=== PATIENT | female | born 1975 | race Caucasian/White ===

== ENCOUNTER 2018-04-25 10:57 | Observation (INO) ==
--- NOTE | 2018-04-25 11:20 | Emergency Department Note ---
Disposition Clinical Impression: Chest pain Qualifiers: Chest pain type: unspecified Qualified Code(s): R07.9 - Chest pain, unspecified CHF (congestive heart failure) Qualifiers: Heart failure type: unspecified Heart failure chronicity: unspecified Qualified Code(s): I50.9 - Heart failure, unspecified Disposition: Admitted As Inpatient Condition: Good General Adult HPI - General Chief complaint: ED Chest Pain Stated complaint: chest pain Time Seen by Provider: 04/25/18 11:05 Source: patient Mode of arrival: ambulatory Limitations: no limitations Nursing Notes Reviewed: Yes Vital Signs Reviewed: Yes - History of Present Illness HPI Narrative: Patient's a 43-year-old female with history of asthma who presents the emergency department with complaints of chest pain, shortness of breath and bilateral eye swelling. She states that the pain began suddenly this morning in the middle of her chest with some radiation into her left arm. She states it is worsened with movement and walking. She otherwise has been having bilateral swelling in her eyes for the past 2 days without known allergy exposure. She states this feels similar to previous episodes of asthma. Otherwise denies any fever, chills, nausea, vomiting, diarrhea, abdominal pain, dysuria, hematuria. Pain Scale: 8 - Related Data Home Medications Medication Instructions Recorded Confirmed Gabapentin [Neurontin] 600 mg PO TID 04/25/18 Naproxen 500 mg PO BID PRN 04/25/18 OXcarbazepine [Oxcarbazepine] 600 mg PO BID 04/25/18 Prazosin [Minipress] 1 mg PO 04/25/18 Trazodone HCl 150 mg PO HS PRN 04/25/18 04/25/18 clonazePAM [Clonazepam] 1 mg PO BID PRN 04/25/18 04/25/18 risperiDONE [Risperidone] 1 mg PO 04/25/18 risperiDONE [Risperidone] 4 mg PO 04/25/18 Previous Rx's Medication Instructions Recorded Clotrimazole 1% CRM [Lotrimin 1%] 1 appl TP BID PRN #30 tube 12/25/17 Furosemide [Lasix] 20 mg PO DAILY #5 tablet 12/25/17 Potassium Chloride 10 meq PO DAILY #5 tab.er.prt 12/25/17 Albuterol Sulfate [Albuterol 1 puff IH Q4HR PRN #1 hfa.aer.ad 02/06/18 Inhaler] Guaifenesin [Mucinex] 1,200 mg PO BID #20 tab.er.12h 02/06/18 Allergies Allergy/AdvReac Type Severity Reaction Status Date / Time dicyclomine Allergy Anaphylaxis Verified 04/25/18 11:02 diphenhydramine Allergy Anaphylaxis Verified 04/25/18 11:02 [From Benadryl] doxycycline Allergy See Verified 04/25/18 11:02 Comments Influenza Virus Vaccines Allergy See Verified 04/25/18 11:02 Comments Penicillins Allergy Anaphylaxis Verified 04/25/18 11:02 FLU SHOT Allergy See Uncoded 01/08/16 16:32 Comments histamines Allergy See Uncoded 01/08/16 17:24 Comments steroids Allergy Anaphylaxis Uncoded 12/25/17 10:28 Constitutional: Denies: fever, chills, weakness, weight change Eyes: Denies: eye pain, eye discharge, vision change Cardiovascular: Reports: chest pain, dyspnea on exertion. Denies: palpitations, orthopnea, edema Respiratory: Reports: cough, dyspnea. Denies: wheezes, hemoptysis, stridor Past Medical History - Past Medical History Medical history: Reports: arthritis, asthma Surgical history: Reports: non-contributory Psychiatric history: Reports: no psych history, previous psychiatric hospitalization, anxiety, bipolar, depression, prior suicide attempt TRANSMISSION TESTER history: Reports: no TRANSMISSION TESTER history, bilateral tubal ligation - Social History Smoking Status: Current every day smoker Smokeless Tobacco Status: No Alcohol use: Reports: none Drug use: Reports: none, marijuana Physical Exam - General Limitations: no limitations General appearance: alert, in no apparent distress, obese - Head Head exam: atraumatic, normocephalic - Eye Eye exam: Present: PERRL, periorbital swelling (bilaterally). Absent: conjunctival injection, nystagmus - ENT ENT exam: normal exam, normal oropharynx, mucous membranes moist, mucous membranes dry - Neck Neck exam: Present: normal inspection, full ROM, trachea midline - Chest Chest inspection: Present: normal inspection, tenderness (central and left lateral) - Respiratory Respiratory exam: Present: wheezes (mild inspiratory and expiratory right lower lobe). Absent: respiratory distress, stridor, accessory muscle use - Cardiovascular Cardiovascular exam: Present: regular rate, normal rhythm, normal heart sounds, +S1, +S2 - Abdominal Exam Abdominal exam: Present: soft, Non-Tender, normal bowel sounds. Absent: distention, guarding, rebound - Extremities Exam Extremities exam: Present: normal capillary refill, pedal edema (2+ bilaterally to knee) - Back Exam Back exam: Present: normal inspection - Neurological Exam Neurological exam: Present: alert, oriented X3 - Psychiatric Psychiatric exam: Present: normal affect, normal mood - Skin Skin exam: Present: warm, dry, intact Course Vital Signs Temperature 97.6 F 04/25/18 11:01 Pulse Rate 94 04/25/18 11:01 Respiratory Rate 20 04/25/18 11:01 Blood Pressure 164/106 04/25/18 11:01 O2 Sat by Pulse Oximetry 96 04/25/18 11:01 Temperature 97.6 F 04/25/18 11:01 Pulse Rate 76 04/25/18 14:44 Respiratory Rate 22 04/25/18 14:44 Blood Pressure 144/94 04/25/18 14:44 O2 Sat by Pulse Oximetry 94 04/25/18 14:44 Oxygen Delivery Oxygen Delivery Room Air Medical Decision Making - [facility] Narrative Medical decision making narrative: Patient with asthma history presenting with symptoms of chest pain, periorbital swelling, and bilateral leg swelling. Does have history of asthma and states this feels somewhat similar to her previous episodes but does admit onset of chest pain. Has been worked up in the past but is awaiting an echo to evaluate for CHF. Does take Lasix 40 mg at home. Given her periorbital swelling concern for allergic reaction. Patient feels slight improvement after DuoNeb but her wheezing persists. Chest x-ray does not show acute effusions. Troponin negative. EKG unremarkable for acute ST elevation. BNP elevated and above her baseline. At this point the patient will require admission as she likely has a component of CHF which has gone undiagnosed. 40 of Lasix given in the emergency department. Discussed the patient's case with hospitalist, Dr. Pretty who has accepted the patient. Patient agrees with and understands course of treatment plan including plan for admission. All questions answered. - Medical Records Medical records reviewed: Yes I reviewed the patient's medical records. - Lab Data Lab results reviewed: Yes I reviewed the patient's lab results. Result diagrams: 04/25/18 11:55 04/25/18 11:55 Lab Results 04/25/18 04/25/18 04/25/18 Range/Units 11:55 11:55 11:55 WBC 7.3 (4.3-11.1) K/mcL RBC 4.02 (3.82-4.97) M/mcL Hgb 12.5 (11.5-15.4) g/dL Hct 37.4 (35.3-44.9) % MCV 93.0 (83.0-100.0) fL MCH 31.1 (28.0-33.3) pg MCHC 33.4 (31.6-35.5) g/dL RDW 14.5 (11.5-14.5) % Plt Count 209 (140-400) K/mcL MPV 9.9 (9.4-12.4) fL Immature Gran % 0.1 (0-4) % Seg Neutrophils % 74.0 % Lymphocytes % 15.1 % Monocytes % 6.0 % Eosinophils % 4.4 % Basophils % 0.4 % Neutrophils # 5.4 (1.6-8.9) K/mcL Lymphocytes # 1.1 (0.6-4.6) K/mcL Monocytes # 0.4 (0.0-1.3) K/mcL Eosinophils # 0.3 (0.0-0.6) K/mcL Basophils # 0.0 (0.0-0.2) K/mcL Sodium 135 L (136-145) mEq/L Potassium 3.8 (3.5-5.1) mEq/L Chloride 103 (98-107) mEq/L Carbon Dioxide 24 (23-29) mEq/L BUN 6 (6-20) mg/dL Creatinine 0.69 (0.60-1.20) mg/dL Est GFR ( Amer) > 60 (> 60) Est GFR (Non-Af Amer) > 60 (> 60) BUN/Creatinine Ratio 9 (6-26) Glucose 101 (70-105) mg/dL Calculated Osmolality 278 L (280-300) Calcium 8.4 L (8.6-10.3) mg/dL Troponin I < 0.03 (< 0.04) ng/mL B-Natriuretic Peptide 133 H (Less than 100) pg/mL TSH 1.586 (0.340-5.600) mcIU/mL Urine Color (Yellow) Urine Clarity (Clear) Urine pH (5.0-8.0) pH Units Ur Specific [place] (1.010-1.025) Urine Protein (Neg-Trace) mg/dL Urine Glucose (UA) (Normal) mg/dL Urine Ketones (Negative) mg/dL Urine Blood (Negative) Urine Nitrite (Negative) Urine Bilirubin (Negative) Urine Urobilinogen (Normal) mg/dL Ur Leukocyte Esterase (Negative) Urine Microscopic RBC (0-3) per hpf Urine Microscopic WBC (0-3) per hpf Ur Squamous Epith Cells (None-Few) per lpf Urine Bacteria (None-Few) per hpf Hyaline Casts (None-Few) per lpf Ur Culture Indicated? (NO) Urine Test (Negative) 04/25/18 04/25/18 Range/Units 12:03 12:03 WBC (4.3-11.1) K/mcL RBC (3.82-4.97) M/mcL Hgb (11.5-15.4) g/dL Hct (35.3-44.9) % MCV (83.0-100.0) fL MCH (28.0-33.3) pg MCHC (31.6-35.5) g/dL RDW (11.5-14.5) % Plt Count (140-400) K/mcL MPV (9.4-12.4) fL Immature Gran % (0-4) % Seg Neutrophils % % Lymphocytes % % Monocytes % % Eosinophils % % Basophils % % Neutrophils # (1.6-8.9) K/mcL Lymphocytes # (0.6-4.6) K/mcL Monocytes # (0.0-1.3) K/mcL Eosinophils # (0.0-0.6) K/mcL Basophils # (0.0-0.2) K/mcL Sodium (136-145) mEq/L Potassium (3.5-5.1) mEq/L Chloride (98-107) mEq/L Carbon Dioxide (23-29) mEq/L BUN (6-20) mg/dL Creatinine (0.60-1.20) mg/dL Est GFR ( Amer) (> 60) Est GFR (Non-Af Amer) (> 60) BUN/Creatinine Ratio (6-26) Glucose (70-105) mg/dL Calculated Osmolality (280-300) Calcium (8.6-10.3) mg/dL Troponin I (< 0.04) ng/mL B-Natriuretic Peptide (Less than 100) pg/mL TSH (0.340-5.600) mcIU/mL Urine Color Yellow (Yellow) Urine Clarity Cloudy A (Clear) Urine pH 6.0 (5.0-8.0) pH Units Ur Specific [place] 1.008 L (1.010-1.025) Urine Protein Negative (Neg-Trace) mg/dL Urine Glucose (UA) Normal (Normal) mg/dL Urine Ketones Negative (Negative) mg/dL Urine Blood Negative (Negative) Urine Nitrite Negative (Negative) Urine Bilirubin Negative (Negative) Urine Urobilinogen Normal (Normal) mg/dL Ur Leukocyte Esterase Negative (Negative) Urine Microscopic RBC 0-3 (0-3) per hpf Urine Microscopic WBC 3-5 H (0-3) per hpf Ur Squamous Epith Cells Many H (None-Few) per lpf Urine Bacteria Few (None-Few) per hpf Hyaline Casts None Seen (None-Few) per lpf Ur Culture Indicated? NO (NO) Urine Test Negative (Negative) - Radiology Data Radiology results reviewed: Yes I reviewed the patient's radiology results. Chest X-Ray 04/25/18 11:24 IMPRESSION: Mild hazy bilateral perihilar interstitial prominence which may relate to vascular congestion or bronchitis. No focal airspace disease. D/ / Ravi Vidal MD / Ravi Vidal MD Interpreting Provider: Ravi Vidal MD - EKG Data EKG #1 EKG attestation: Yes I reviewed and interpreted this EKG. EKG results narrative: Normal sinus rhythm rate of 80. [place] 167, QRS 91, QT 406, QTC 469. Normal axis. No evidence of acute ST elevations. T wave inversions in aVR and V1 persists. Unchanged when compared to prior from today, 04/25/18 EKG shows normal: sinus rhythm Rate: normal Rhythm: NSR [place]/QRS: normal T wave inversions noted in: aVR, v1 When compared to previous EKG there are: no significant changes Interpretation: unchanged when compared to prior tracing (date) (02/06/18) EKG #2 EKG attestation: Yes I reviewed and interpreted this EKG. EKG results narrative: Normal sinus rhythm rate of 80. [place] 167, QRS 91, QT 406, QTC 469. Normal axis. No evidence of acute ST elevations. T wave inversions in aVR and V1 persists. Unchanged when compared to prior from today, 04/25/18 Attestation Statement - Attestation Attestation: I examined this patient and my medical decision-making was reviewed with the Resident Physician, Dr. Rojas. I agree with the documented findings, disposition and treatment plan as described except to the extent set forth below. Patient is a 43-year-old obese white female with questionable history of CHF who presents to emergency permit today with complaints of shortness of breath and acute onset of chest pain that she experienced this morning soon after wakening. Pain was in her left chest radiating into the left shoulder she was feeling nauseous with this and short of breath. Patient denies any prior cardiac history states that her primary care physician and started on Lasix for genera lized edema as well as facial edema and she is awaiting outpatient echo for further evaluation. Patient here is complaining of some 6 out of 10 left-sided chest discomfort that is persistent since this morning. Patient also has some expiratory wheezing that is auscultated in the bases bilaterally, and she also has some very orbital edema. Patient denies any skin changes rash or hives, no itching, no nausea vomiting preceding the evaluation today, no perioral swelling no tongue swelling no sore throat, no difficulty swallowing or managing secretions. I asked the patient about allergic history and she said she has had some allergy testing done in the past but as far she is aware that she is had no abnormalities that if shown up although she does complain of numerous drug allergies that cause anaphylaxis. Specifically she states allergies to Benadryl and steroids and says that both of these agents caused anaphylaxis in the past. Due to this we held off on administering anything for her periorbital edema and did write for breathing treatments the wheezing. Patient was not having any respiratory distress. I agree with patient's physical exam findings as documented. Vital signs are stable. Patient received a DuoNeb treatment aspirin was held as she reports severe allergic reaction. Patient did get significant improvement in her chest discomfort with DuoNeb. Patient had full lab evaluation including troponin and BNP as well as chest x- ray. Patient with a mild elevation in her BNP and some evidence of pulmonary vascular congestion on chest x-ray but no consolidation. Patient will be admitted for further evaluation of her chest pain unclear as I think this is multifactorial at this time with an asthma exacerbation as well as some allergic component causing her periorbital edema. Her multiple allergies make it difficult to attempt to address these issues here. Patient will be admitted to the hospitalist service for further evaluation and management she remains hemodynamically stable and in no sign of respiratory distress at this time.
[2018-04-25] MEDS ORDERED: Ipratropium/Albuterol Neb 3 ML IH ONE (11:27)
[2018-04-25 12:14] LABS: Basophils % 0.4 %; Eosinophils # 0.3 K/mcL (0.0-0.6); Eosinophils % 4.4 %; Hematocrit 37.4 % (35.3-44.9); Hemoglobin 12.5 g/dL (11.5-15.4); Immature Granulocytes % 0.1 % (0-4); Lymphocytes # 1.1 K/mcL (0.6-4.6); Lymphocytes % 15.1 %; Mean Corpuscular HGB Conc 33.4 g/dL (31.6-35.5); Mean Corpuscular Hemoglobin 31.1 pg (28.0-33.3); Mean Platelet Volume 9.9 fL (9.4-12.4); Monocytes # 0.4 K/mcL (0.0-1.3); Neutrophils # 5.4 K/mcL (1.6-8.9); Platelet Count 209 K/mcL (140-400); Red Blood Count 4.02 M/mcL (3.82-4.97); Red Cell Distribution Width 14.5 % (11.5-14.5)
[2018-04-25 12:37] LABS: Troponin I < 0.03 ng/mL (< 0.04)
[2018-04-25 12:39] LABS: BUN/Creatinine Ratio 9 (6-26); Blood Urea Nitrogen 6 mg/dL (6-20); Calcium 8.4 mg/dL (8.6-10.3); Carbon Dioxide 24 mEq/L (23-29); Chloride 103 mEq/L (98-107); Glucose 101 mg/dL (70-105); Osmolality,Calculated 278 (280-300); Potassium 3.8 mEq/L (3.5-5.1); Sodium 135 mEq/L (136-145); eGFR For Non-African Americans > 60 (> 60)
[2018-04-25 12:43] LABS: Bilirubin,Urine Negative (Negative); Blood,Urine Negative (Negative); Clarity,Urine Cloudy (Clear); Color,Urine Yellow (Yellow); Glucose,Urine (UA) Normal (Normal); Ketones,Urine Negative (Negative); Leukocyte Esterase,Urine Negative (Negative); Nitrite,Urine Negative (Negative); Protein,Urine Negative (Neg-Trace); Specific Gravity,Urine 1.008 (1.010-1.025); Urobilinogen,Urine Normal (Normal)
[2018-04-25 12:44] LABS: Bacteria,Urine Few per hpf (None-Few); Hyaline Casts,Urine None Seen per lpf (None-Few); RBC,Urine 0-3 per hpf (0-3); Squamous Epithelial Cell,Urine Many per lpf (None-Few)
[2018-04-25 12:50] LABS: Thyroid Stimulating Hormone 1.586 mcIU/mL (0.340-5.600)
[2018-04-25] MEDS ORDERED: Ibuprofen 600 MG TABLET PO STA (13:07)
[2018-04-25] MEDS ORDERED: Furosemide 40 MG/4 ML VIAL IVP ONE (13:35)
[2018-04-25] MEDS ORDERED: *HR* HYDROcodone/Acet 5/325 mg TABLET PO PRN (15:34)
[2018-04-25] MEDS ORDERED: Ondansetron 4 MG/2 ML VIAL IVP PRN (15:34)
[2018-04-25] MEDS ORDERED: Naloxone 0.4 MG/ML INJ IVP PRN (15:34)
[2018-04-25] MEDS ORDERED: Nitroglycerin 0.4 MG TAB.SUBL SL PRN (15:38)
[2018-04-25] MEDS ORDERED: Ipratropium/Albuterol Neb 3 ML IH PRN (15:38)
--- NOTE | 2018-04-25 15:42 | Internal Med History&Physical ---
Date of Encounter: 04/25/18 Time of Encounter: 15:39 Internal Medicine - H&P: HPI Chief complaint: Chest pain Admitted From: Emergency Dept Plans for Post Hospital Care: Home History of present illness: Ms. Taras Brito is a 43 year old female with a known past medical history of asthma, chronic tobacco dependence, anxiety, bipolar and questionable congestive heart failure who is on Lasix 60mg for bilateral lower extremity edema and facial swelling presented emergency room complaining about since this morning patient has been having continuous sharp chest pain located sub sternal region radiating to her left shoulder. Her chest pain 6 out of 10 in severity not associated with any shortness of breath/dyspnea on exertion. Patient did mention this morning she noticed some facial swelling as well as bilateral lower extremity edema which improved now of taking Lasix at home as well as in the ER. Patient complains of chest pain or shoulder pain is like a soreness. She does have reproducible chest wall tenderness. Past Med Surg Social Fam HX - Past Medical History Medical history: arthritis, asthma Additional medical history: Cervical Cancer Psychiatric history: no psych history, previous psychiatric hospitalization, anxiety, bipolar, depression, prior suicide attempt - Past Surgical History Surgical History: non-contributory Additional surgical history: CERVICS REMOVED - Social History Smoking Status: Current every day smoker Smokeless Tobacco Status: No Alcohol use: none Drug use: none, marijuana Internal Medicine - H&P: Meds Clotrimazole 1% CRM [Lotrimin 1%] 1 appl TP BID PRN #30 tube 12/25/17 [Rx] Furosemide [Lasix] 20 mg PO DAILY #5 tablet 12/25/17 [Rx] Potassium Chloride 10 meq PO DAILY #5 tab.er.prt 12/25/17 [Rx] Albuterol Sulfate [Albuterol Inhaler] 1 puff IH Q4HR PRN #1 hfa.aer.ad 02/06/18 [Rx] Guaifenesin [Mucinex] 1,200 mg PO BID #20 tab.er.12h 02/06/18 [Rx] Gabapentin [Neurontin] 600 mg PO TID 04/25/18 [History] Naproxen 500 mg PO BID PRN 04/25/18 [History] OXcarbazepine [Oxcarbazepine] 600 mg PO BID 04/25/18 [History] Prazosin [Minipress] 1 mg PO 04/25/18 [History] Trazodone HCl 150 mg PO HS PRN 04/25/18 [History] clonazePAM [Clonazepam] 1 mg PO BID PRN 04/25/18 [History] risperiDONE [Risperidone] 1 mg PO 04/25/18 [History] risperiDONE [Risperidone] 4 mg PO 04/25/18 [History] Allergy/AdvReac Type Severity Reaction Status Date / Time dicyclomine Allergy Anaphylaxis Verified 04/25/18 11:02 diphenhydramine Allergy Anaphylaxis Verified 04/25/18 11:02 [From Benadryl] doxycycline Allergy See Verified 04/25/18 11:02 Comments Influenza Virus Vaccines Allergy See Verified 04/25/18 11:02 Comments Penicillins Allergy Anaphylaxis Verified 04/25/18 11:02 FLU SHOT Allergy See Uncoded 01/08/16 16:32 Comments histamines Allergy See Uncoded 01/08/16 17:24 Comments steroids Allergy Anaphylaxis Uncoded 12/25/17 10:28 All Systems PM: A 10-system review of systems was performed and is negative for pertinent findings except as documented above in the HPI. Review of systems: All the systems are reviewed everything is benign except the systems and symptoms I mentioned in the history of present illness - Constitutional Vitals: Temp Pulse Resp BP Pulse Ox 97.8 F 81 20 138/94 91 04/25/18 15:35 04/25/18 15:35 04/25/18 15:35 04/25/18 15:35 04/25/18 15:35 General appearance: Present: A&O X 3, no acute distress, answers questions appropriately Exam: See below - Head Head exam: Present: atraumatic, normal inspection - Neck Neck exam general surgery: Present: supple - Respiratory Respiratory exam: Present: decreased breath sounds. Absent: rales, respiratory distress, rhonchi, wheezes - Cardiovascular Cardiovascular exam: Present: RRR, +S1, +S2. Absent: tachycardia Additional comments: Chest wall tenderness present - GI/Abdominal GI/Abdominal exam: Present: normal bowel sounds, soft. Absent: distended, rebound, rigid, tenderness - Extremities Exam Extremities exam: Present: pedal edema (Trace edema). Absent: calf tenderness, tenderness - Back Exam Back exam: Absent: CVA tenderness (L), CVA tenderness (R) - Neurological Exam Neurological exam: Present: alert, oriented X3 - Psychiatric Psychiatric exam: Present: normal affect, normal mood - Skin Skin exam: Absent: rash Internal Med - H&P Results - Labs CBC & Chem 7: 04/25/18 11:55 04/25/18 11:55 Labs: Short CBC 04/25/18 Range/Units 11:55 WBC 7.3 (4.3-11.1) K/mcL Hgb 12.5 (11.5-15.4) g/dL Hct 37.4 (35.3-44.9) % Plt Count 209 (140-400) K/mcL Neutrophils # 5.4 (1.6-8.9) K/mcL BMP 04/25/18 11:55 Sodium 135 L Potassium 3.8 Chloride 103 Carbon Dioxide 24 BUN 6 Creatinine 0.69 Glucose 101 Calcium 8.4 L Cardiac Enzymes 04/25/18 Range/Units 11:55 Troponin I < 0.03 (< 0.04) ng/mL Urine 04/25/18 Range/Units 12:03 Urine Color Yellow (Yellow) Urine Clarity Cloudy A (Clear) Urine pH 6.0 (5.0-8.0) pH Units Ur Specific [place] 1.008 L (1.010-1.025) Urine Protein Negative (Neg-Trace) mg/dL Urine Glucose (UA) Normal (Normal) mg/dL - Impressions ITS Impressions Chest X-Ray 04/25/18 11:24 IMPRESSION: Mild hazy bilateral perihilar interstitial prominence which may relate to vascular congestion or bronchitis. No focal airspace disease. D/ / Ravi Vidal MD / Ravi Vidal MD Interpreting Provider: Ravi Vidal MD - Assessment and plan (1) Atypical chest pain Current Visit: Yes Status: Acute Assessment and plan: Will admit the pt into Tele for observation Will place pt on cardiac technologist check serial troponin so far negative troponin EKG reviewed- NSR, no acute ischemic changes, ST, T changes noticed will start pt on ASA and Nitro PRN for pain Will check FLP in AM she does have reproducible chest wall tenderness her chest pain seems to more like musculoskeletal however given her congestive heart failure symptoms I would get echo in the morning and monitor her symptoms closely for now will keep her NPO after midnight if in case patient needs any further interventions in the morning (2) Acute exacerbation of CHF (congestive heart failure) Current Visit: Yes Status: Acute Assessment and plan: Apparently patient has been having bilateral lower extremity edema and facial swelling which she has been taking Lasix at home her BNP @ 133 reviewer chest x-ray showed mild vascular congestion she was received Lasix IV in the ER will get echo in the morning monitor symptoms closely she might have mild diastolic congestive heart failure exacerbation Qualifiers: Heart failure type: unspecified Qualified Code(s): I50.9 - Heart failure, unspecified (3) Asthma Current Visit: Yes Status: Chronic Assessment and plan: Not in exacerbation resumed home inhalers Qualifiers: Asthma severity: mild Asthma persistence: intermittent Asthma complication type: uncomplicated Qualified Code(s): J45.20 - Mild intermittent asthma, uncomplicated (4) Tobacco dependence Current Visit: Yes Status: Acute Assessment and plan: Counseled to quit smoking placed on nicotine patch (5) Bipolar 1 disorder Current Visit: Yes Status: Acute Assessment and plan: Will regime all her home medications - Time Spent With Patient Total time spent is greater than 50% in coordination of care (as documented) at patient's floor/unit and/or counseling patient:
[2018-04-25] MEDS: Nicotine 21 MG PATCH.TD24 TD SCH (16:51)
[2018-04-25] MEDS: Acetaminophen 325 MG TABLET PO PRN (20:23)
[2018-04-25] MEDS ORDERED: Perflutren Lipid Microsphere 1.3 ML in 0.9 % Sodium Chloride 8.7 ML IVP ONE (21:45)
[2018-04-26] MEDS: Acetaminophen 325 MG TABLET PO PRN (01:23)
[2018-04-26 05:35] LABS: BUN/Creatinine Ratio 11 (6-26); Blood Urea Nitrogen 8 mg/dL (6-20); Calcium 8.5 mg/dL (8.6-10.3); Carbon Dioxide 27 mEq/L (23-29); Chloride 101 mEq/L (98-107); Chol/HDL Ratio 3.3 (0-4.9); Cholesterol 127 mg/dL (< 200); Glucose 93 mg/dL (70-105); HDL Cholesterol 38 mg/dL (40-59); LDL Cholesterol,Calculated 69 mg/dL (0-99); Osmolality,Calculated 282 (280-300); Potassium 3.7 mEq/L (3.5-5.1); Sodium 137 mEq/L (136-145); Triglycerides 102 mg/dL (< 150); eGFR For Non-African Americans > 60 (> 60)
[2018-04-26] MEDS ORDERED: Aspirin Enteric Coated 81 MG Tablet PO SCH (09:00)
[2018-04-26] MEDS ORDERED: Furosemide 40 MG/4 ML VIAL IVP SCH (09:00)
[2018-04-26] MEDS: Nicotine 21 MG PATCH.TD24 TD SCH (10:56)
--- NOTE | 2018-04-26 11:53 | Discharge Summary ---
- NOTES TO OUTPATIENT PROVIDER Notes to Outpatient Provider: Follow up with PCP in one week. please quit smoking Orders not resulted at time of discharge: Pending orders 04/25/18 11:09 ECG 12 lead ECG [ECG] Stat Date of Encounter: 04/26/18 Time of Encounter: 11:51 - Discharge Diagnosis (1) Atypical chest pain Priority: Primary Status: Acute (2) Acute exacerbation of CHF (congestive heart failure) Priority: Primary Status: Acute Qualifiers: Heart failure type: unspecified Qualified Code(s): I50.9 - Heart failure, unspecified (3) Asthma Priority: Secondary Status: Chronic Qualifiers: Asthma severity: mild Asthma persistence: intermittent Asthma complication type: uncomplicated Qualified Code(s): J45.20 - Mild intermittent asthma, uncomplicated (4) Tobacco dependence Priority: Secondary Status: Acute (5) Bipolar 1 disorder Priority: Secondary Status: Acute Hospital course: Ms. Taras Brito is a 43 year old female with a known past medical history of asthma, chronic tobacco dependence, anxiety, bipolar and questionable congestive heart failure who is on Lasix 60mg for bilateral lower extremity edema and facial swelling presented emergency room complaining about since this morning patient has been having continuous sharp chest pain located sub sternal region radiating to her left shoulder. Her chest pain 6 out of 10 in severity not associated with any shortness of breath/dyspnea on exertion. Patient did mention this morning she noticed some facial swelling as well as bilateral lower extremity edema which improved now of taking Lasix at home as well as in the ER. Patient complains of chest pain or shoulder pain is like a soreness. She does have reproducible chest wall tenderness. Patient was admitted in the hospital and placed her on desk monitor. We checked her serial troponin X3 came back is negative. Her EKG did not show any acute ischemic changes. Her chest pain seems to be atypical and most likely due to costochondritis. Reviewed her echocardiogram showed preserved LVEF with no wall motion abnormalities. She does have mild left ventricular concentric hypertrophy. She was given IV Lasix her symptoms improved today. she is breathing comfortably on room air. Will discharge her home in a stable condition today after ambulating pulse oxy study - Time Spent with Patient Total time spent providing and/or coordinating discharge services: - Discharge Medications Prescriptions: Aspirin Enteric Coated [Aspirin EC] 81 mg PO DAILY #30 tablet. Naproxen 500 mg PO BID PRN #20 tablet PRN Reason: Pain Nicotine Patch [Nicoderm] 21 mg TD Q24H #30 patch.td24 Home Medications: Clotrimazole 1% CRM [Lotrimin 1%] 1 appl TP BID PRN #30 tube 12/25/17 [Rx] Furosemide [Lasix] 20 mg PO DAILY #5 tablet 12/25/17 [Rx] Albuterol Sulfate [Albuterol Inhaler] 1 puff IH Q4HR PRN #1 hfa.aer.ad 02/06/18 [Rx] Guaifenesin [Mucinex] 1,200 mg PO BID #20 tab.er.12h 02/06/18 [Rx] Gabapentin [Neurontin] 600 mg PO TID 04/25/18 [History] OXcarbazepine [Oxcarbazepine] 600 mg PO HS 04/25/18 [History] Prazosin [Minipress] 1 mg PO DAILY 04/25/18 [History] Trazodone HCl 150 mg PO HS PRN 04/25/18 [History] clonazePAM [Clonazepam] 1 mg PO BID PRN 04/25/18 [History] risperiDONE [Risperidone] 1 mg PO DAILY 04/25/18 [History] risperiDONE [Risperidone] 4 mg PO DAILY 04/25/18 [History] Aspirin Enteric Coated [Aspirin EC] 81 mg PO DAILY #30 tablet. 04/26/18 [Rx] Naproxen 500 mg PO BID PRN #20 tablet 04/26/18 [Rx] Nicotine Patch [Nicoderm] 21 mg TD Q24H #30 patch.td24 04/26/18 [Rx] Allergies/Adverse Reactions: Allergy/AdvReac Type Severity Reaction Status Date / Time dicyclomine Allergy Anaphylaxis Verified 04/25/18 11:02 diphenhydramine Allergy Anaphylaxis Verified 04/25/18 11:02 [From Benadryl] doxycycline Allergy See Verified 04/25/18 11:02 Comments Influenza Virus Vaccines Allergy See Verified 04/25/18 11:02 Comments Penicillins Allergy Anaphylaxis Verified 04/25/18 11:02 FLU SHOT Allergy See Uncoded 01/08/16 16:32 Comments histamines Allergy See Uncoded 01/08/16 17:24 Comments steroids Allergy Anaphylaxis Uncoded 12/25/17 10:28 Date of admission: 04/25/18 14:42 Primary care physician: Otf Casey MD Consults: 04/26/18 07:47 Consult to Nurse Navigator [CONS] Routine Comment: CHF - Constitutional Vitals: Temp Pulse Resp BP Pulse Ox 97.9 F 71 18 131/86 90 04/26/18 07:53 04/26/18 07:53 04/26/18 07:53 04/26/18 07:53 04/26/18 07:53 General appearance: Present: A&O X 3, no acute distress, answers questions appropriately Exam: Gen: Alert, awake, Oriented to time,place and person Chest: Diminished breath sounds B/L, No wheezing, No crackles, No rales, reproducible chest wall tenderness Heart: S1S2+ RRR No murmurs Abd: Soft, NT, BS +, No organomegaly Ext: improved edema, pulses are palpable, No calf tenderness Neuro : Benign findings Skin: No rash. - Patient Status Disposition: Home, Self-Care Condition: Good Overall status at discharge: patient is back to baseline - Discharge Instructions Follow Up With: Otf Casey MD [Primary Care Provider] - - Diet and Activity Activity: increase activity as tolerated Diet: low salt diet
[2018-04-26 12:01] VITALS: BP 113/74
--- NOTE | 2018-04-29 09:27 | Electrocardiograph Report ---
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
== END 2018-04-26 14:59 | disposition home or self-care (01) ==
LOC: 3BNU 10:57 → EMEROOARM 10:57 → 3BNU 15:09
PROVIDERS: ADMIT Internal Medicine; ATTEND Internal Medicine

== ENCOUNTER 2019-04-08 21:45 | Inpatient (IN) ==
[2019-04-08] MEDS ORDERED: Ipratropium/Albuterol Neb 3 ML IH ONE (21:59)
[2019-04-08] MEDS ORDERED: methylPREDNISolone 125 MG/2 ML VIAL IVP ONE (21:59)
[2019-04-08 23:10] LABS: Basophils % 0.4 %; Eosinophils # 0.2 K/mcL (0.0-0.6); Eosinophils % 3.3 %; Hematocrit 33.8 % (35.3-44.9); Hemoglobin 11.6 g/dL (11.5-15.4); Immature Granulocytes % 0.4 % (0-4); Lymphocytes # 1.2 K/mcL (0.6-4.6); Lymphocytes % 16.1 %; Mean Corpuscular HGB Conc 34.3 g/dL (31.6-35.5); Mean Corpuscular Hemoglobin 32.3 pg (28.0-33.3); Mean Corpuscular Volume 94.2 fL (83.0-100.0); Mean Platelet Volume 10.2 fL (9.4-12.4); Monocytes # 0.6 K/mcL (0.0-1.3); Monocytes % 7.6 %; Neutrophils # 5.3 K/mcL (1.6-8.9); Platelet Count 173 K/mcL (140-400); Red Blood Count 3.59 M/mcL (3.82-4.97); Red Cell Distribution Width 13.8 % (11.5-14.5); Segmented Neutrophils % 72.2 %; White Blood Count 7.3 K/mcL (4.3-11.1)
[2019-04-08 23:33] LABS: Alanine Aminotransferase 6 Units/L (7-52); Albumin/Globulin Ratio 1.5 (1.1-2.2); Alkaline Phosphatase 52 Units/L (34-104); Aspartate Amino Transferase 10 Units/L (13-39); BUN/Creatinine Ratio 7 (6-26); Bilirubin,Direct 0.1 mg/dL (0.0-0.2); Bilirubin,Indirect 0.4 mg/dL (0.0-1.0); Bilirubin,Total 0.5 mg/dL (0.3-1.0); Blood Urea Nitrogen 5 mg/dL (6-20); Calcium 8.4 mg/dL (8.6-10.3); Carbon Dioxide 30 mEq/L (23-29); Chloride 102 mEq/L (98-107); Globulin 2.7 g/dL (2.4-3.5); Glucose 90 mg/dL (70-105); Lipase 5 Units/L (11-82); Osmolality,Calculated 285 (280-300); Potassium 2.8 mEq/L (3.5-5.1); Sodium 139 mEq/L (136-145); Total Protein 6.7 g/dL (6.4-8.9); Troponin I < 0.03 ng/mL (< 0.04); eGFR For African Americans > 60 (> 60); eGFR For Non-African Americans > 60 (> 60)
[2019-04-08 23:53] LABS: Magnesium 1.8 mg/dL (1.6-2.6)
[2019-04-09] MEDS ORDERED: Isovue-370 500 ML BOTTLE IVP ONE (00:11)
[2019-04-09] MEDS ORDERED: clonazePAM 1 MG TABLET PO ONE (00:26)
[2019-04-09] MEDS ORDERED: Furosemide 40 MG/4 ML VIAL IVP ONE (00:55)
[2019-04-09] MEDS ORDERED: Acetaminophen 325 MG TABLET PO PRN (02:09)
[2019-04-09] MEDS ORDERED: Ipratropium/Albuterol Neb 3 ML IH PRN (02:12)
[2019-04-09] MEDS ORDERED: Potassium Chloride Elixir 20 MEQ/15 ML UDC PO ONE ×2 (06:00→08:26)
[2019-04-09 07:40] LABS: BUN/Creatinine Ratio 7 (6-26); Blood Urea Nitrogen 5 mg/dL (6-20); Calcium 8.5 mg/dL (8.6-10.3); Carbon Dioxide 35 mEq/L (23-29); Chloride 99 mEq/L (98-107); Glucose 88 mg/dL (70-105); Osmolality,Calculated 287 (280-300); Potassium 3.2 mEq/L (3.5-5.1); Sodium 140 mEq/L (136-145); eGFR For African Americans > 60 (> 60); eGFR For Non-African Americans > 60 (> 60)
[2019-04-09] MEDS ORDERED: Furosemide 40 MG/4 ML VIAL IVP SCH (09:00)
[2019-04-09] MEDS: Gabapentin 300 MG CAPSULE PO SCH ×3 (09:38→20:27)
[2019-04-09] MEDS: Loratadine 10 MG TABLET PO SCH (09:38)
[2019-04-09] MEDS: Famotidine 20 MG TABLET PO SCH (09:39)
[2019-04-09] MEDS: BuPROPion SR (12 HR) 150 MG TABLET PO SCH ×2 (09:39→20:27)
[2019-04-09] MEDS: Benzonatate 100 MG CAPSULE PO PRN (09:39)
[2019-04-09] MEDS: Sucralfate 1 GM TABLET PO SCH ×4 (09:39→20:26)
[2019-04-09] MEDS: clonazePAM 1 MG TABLET PO SCH ×2 (09:46→20:27)
[2019-04-09] MEDS: *HR* HYDROcodone/Acet 5/325 mg TABLET PO PRN ×2 (09:48→18:13)
[2019-04-09] MEDS ORDERED: Lidocaine -MPF 2% 2 ML VIAL ONE (12:11)
[2019-04-09] MEDS ORDERED: *HR* Propofol 200 MG/20 ML VIAL IVP ONE ×2 (12:11→12:37)
[2019-04-09 13:26] LABS: Bilirubin,Urine Small (Negative); Blood,Urine Large (Negative); Clarity,Urine Cloudy (Clear); Color,Urine Red (Yellow); Glucose,Urine (UA) Normal (Normal); Ketones,Urine Trace mg/dL (Negative); Leukocyte Esterase,Urine Moderate (Negative); Nitrite,Urine Negative (Negative); Protein,Urine 100 mg/dL (Neg-Trace); Urobilinogen,Urine Normal (Normal)
[2019-04-09] MEDS ORDERED: 0.9 % Sodium Chloride 1,000 ML IVC SCH (14:30)
[2019-04-09] MEDS ORDERED: Piperacillin/Tazobactam 3.375 GM in 0.9 % Sodium Chloride Mini Bag 100 ML IVPB SCH (16:00)
[2019-04-09] MEDS: 0.9 % Sodium Chloride 1,000 ML IVC SCH (17:07)
[2019-04-09] MEDS: *HR* Heparin 5,000 UNIT/ML VIAL SQ SCH (17:17)
[2019-04-09] MEDS: Furosemide 40 MG/4 ML VIAL IVP SCH (17:17)
[2019-04-09] MEDS: levoFLOXacin 750 MG/150 ML 750 MG/150 ML BAG IVPB SCH (17:18)
[2019-04-09] MEDS: traZODone 50 MG TABLET PO SCH (20:26)
[2019-04-09] MEDS: risperiDONE 1 MG TABLET PO SCH (20:27)
[2019-04-10 01:44] LABS: Basophils % 0.4 %; Eosinophils # 0.3 K/mcL (0.0-0.6); Eosinophils % 4.9 %; Hematocrit 34.6 % (35.3-44.9); Hemoglobin 11.9 g/dL (11.5-15.4); Immature Granulocytes % 0.4 % (0-4); Lymphocytes % 18.5 %; Mean Corpuscular HGB Conc 34.4 g/dL (31.6-35.5); Mean Corpuscular Hemoglobin 32.3 pg (28.0-33.3); Monocytes # 0.7 K/mcL (0.0-1.3); Monocytes % 12.5 %; Neutrophils # 3.4 K/mcL (1.6-8.9); Platelet Count 191 K/mcL (140-400); Red Blood Count 3.68 M/mcL (3.82-4.97); Red Cell Distribution Width 14.1 % (11.5-14.5); Segmented Neutrophils % 63.3 %; White Blood Count 5.4 K/mcL (4.3-11.1)
[2019-04-10 01:53] LABS: BUN/Creatinine Ratio 10 (6-26); Blood Urea Nitrogen 7 mg/dL (6-20); Calcium 8.3 mg/dL (8.6-10.3); Carbon Dioxide 30 mEq/L (23-29); Chloride 103 mEq/L (98-107); Glucose 78 mg/dL (70-105); Magnesium 1.8 mg/dL (1.6-2.6); Osmolality,Calculated 289 (280-300); Potassium 3.6 mEq/L (3.5-5.1); Sodium 141 mEq/L (136-145); eGFR For African Americans > 60 (> 60); eGFR For Non-African Americans > 60 (> 60)
[2019-04-10] MEDS: *HR* HYDROcodone/Acet 5/325 mg TABLET PO PRN ×3 (03:16→20:16)
[2019-04-10] MEDS: 0.9 % Sodium Chloride 1,000 ML IVC SCH (03:19)
[2019-04-10] MEDS: *HR* Heparin 5,000 UNIT/ML VIAL SQ SCH ×2 (06:30→17:48)
[2019-04-10] MEDS: Loratadine 10 MG TABLET PO SCH (08:14)
[2019-04-10] MEDS: clonazePAM 1 MG TABLET PO SCH (08:15)
[2019-04-10] MEDS: Sucralfate 1 GM TABLET PO SCH ×4 (08:16→22:21)
[2019-04-10] MEDS: Gabapentin 300 MG CAPSULE PO SCH ×3 (08:16→20:16)
[2019-04-10] MEDS: Famotidine 20 MG TABLET PO SCH (08:16)
[2019-04-10] MEDS: Furosemide 40 MG/4 ML VIAL IVP SCH ×2 (08:16→17:48)
[2019-04-10] MEDS: BuPROPion SR (12 HR) 150 MG TABLET PO SCH ×2 (08:16→20:16)
[2019-04-10] MEDS ORDERED: Lactulose Oral Soln 20 GM/30 ML UDC PO ONE (15:18)
[2019-04-10] MEDS: levoFLOXacin 750 MG/150 ML 750 MG/150 ML BAG IVPB SCH (17:48)
[2019-04-10] MEDS: Benzonatate 100 MG CAPSULE PO PRN (17:49)
[2019-04-10] MEDS: traZODone 50 MG TABLET PO SCH (20:15)
[2019-04-10] MEDS: risperiDONE 1 MG TABLET PO SCH (20:16)
[2019-04-10] MEDS: clonazePAM 1 MG TABLET PO PRN (22:24)
[2019-04-11 04:46] LABS: Hematocrit 37.6 % (35.3-44.9); Mean Corpuscular HGB Conc 31.9 g/dL (31.6-35.5); Mean Corpuscular Hemoglobin 31.2 pg (28.0-33.3); Mean Corpuscular Volume 97.7 fL (83.0-100.0); Mean Platelet Volume 11.1 fL (9.4-12.4); Platelet Count 200 K/mcL (140-400); Red Blood Count 3.85 M/mcL (3.82-4.97); Red Cell Distribution Width 14.1 % (11.5-14.5); White Blood Count 5.4 K/mcL (4.3-11.1)
[2019-04-11 05:03] LABS: BUN/Creatinine Ratio 8 (6-26); Blood Urea Nitrogen 6 mg/dL (6-20); Calcium 8.7 mg/dL (8.6-10.3); Carbon Dioxide 28 mEq/L (23-29); Chloride 100 mEq/L (98-107); Glucose 91 mg/dL (70-105); Lipase 13 Units/L (11-82); Osmolality,Calculated 281 (280-300); Potassium 3.3 mEq/L (3.5-5.1); Sodium 137 mEq/L (136-145); eGFR For African Americans > 60 (> 60); eGFR For Non-African Americans > 60 (> 60)
[2019-04-11] MEDS: *HR* Heparin 5,000 UNIT/ML VIAL SQ SCH ×2 (06:03→16:50)
[2019-04-11] MEDS: *HR* HYDROcodone/Acet 5/325 mg TABLET PO PRN ×3 (06:07→22:20)
[2019-04-11] MEDS ORDERED: Potassium Chloride Elixir 20 MEQ/15 ML UDC PO ONE (07:35)
[2019-04-11] MEDS ORDERED: Furosemide 40 MG TABLET PO SCH (09:00)
[2019-04-11] MEDS: Famotidine 20 MG TABLET PO SCH (09:13)
[2019-04-11] MEDS: Loratadine 10 MG TABLET PO SCH (09:13)
[2019-04-11] MEDS: Sucralfate 1 GM TABLET PO SCH ×4 (09:13→21:37)
[2019-04-11] MEDS: Gabapentin 300 MG CAPSULE PO SCH ×3 (09:13→21:36)
[2019-04-11] MEDS: BuPROPion SR (12 HR) 150 MG TABLET PO SCH ×2 (09:13→21:37)
[2019-04-11 10:07] LABS: ANA IgG by ELISA DETECTED (None Detected)
[2019-04-11 15:23] LABS: Bilirubin,Urine Negative (Negative); Blood,Urine Moderate (Negative); Clarity,Urine Cloudy (Clear); Color,Urine Yellow (Yellow); Glucose,Urine (UA) Normal (Normal); Ketones,Urine Negative (Negative); Leukocyte Esterase,Urine Large (Negative); Nitrite,Urine Negative (Negative); Protein,Urine Negative (Neg-Trace); Specific Gravity,Urine 1.009 (1.010-1.025); Urobilinogen,Urine Normal (Normal)
[2019-04-11 15:24] LABS: Hyaline Casts,Urine None Seen per lpf (None-Few); RBC,Urine 0-3 per hpf (0-3); Squamous Epithelial Cell,Urine Many per lpf (None-Few); WBC,Urine 15-30 per hpf (0-3)
[2019-04-11 15:29] LABS: Creatinine,Urine 44 mg/dL
[2019-04-11 15:40] LABS: Bacteria,Urine Few per hpf (None-Few)
[2019-04-11 16:21] LABS: Complement C3 141 mg/dL (87-200)
[2019-04-11] MEDS: Furosemide 40 MG/4 ML VIAL IVP SCH (16:50)
[2019-04-11] MEDS: levoFLOXacin 750 MG TABLET PO SCH (16:53)
[2019-04-11 17:59] LABS: ANA HEp-2 IgG IFA DETECTED (<1:80)
[2019-04-11 18:00] LABS: Anti Nuclear Ab Pattern CENTROMERE
[2019-04-11] MEDS: traZODone 50 MG TABLET PO SCH (21:36)
[2019-04-11] MEDS: risperiDONE 1 MG TABLET PO SCH (21:37)
[2019-04-12] MEDS: *HR* HYDROcodone/Acet 5/325 mg TABLET PO PRN ×3 (04:46→20:27)
[2019-04-12] MEDS: *HR* Heparin 5,000 UNIT/ML VIAL SQ SCH ×2 (05:38→16:27)
[2019-04-12 06:14] LABS: BUN/Creatinine Ratio 9 (6-26); Blood Urea Nitrogen 8 mg/dL (6-20); Calcium 9.3 mg/dL (8.6-10.3); Carbon Dioxide 22 mEq/L (23-29); Chloride 98 mEq/L (98-107); Glucose 93 mg/dL (70-105); Magnesium 1.8 mg/dL (1.6-2.6); Osmolality,Calculated 280 (280-300); Potassium 3.8 mEq/L (3.5-5.1); Sodium 136 mEq/L (136-145); eGFR For African Americans > 60 (> 60); eGFR For Non-African Americans > 60 (> 60)
[2019-04-12 06:53] LABS: Hematocrit 38.4 % (35.3-44.9); Hemoglobin 13.2 g/dL (11.5-15.4); Mean Corpuscular HGB Conc 34.4 g/dL (31.6-35.5); Mean Corpuscular Hemoglobin 32.3 pg (28.0-33.3); Mean Corpuscular Volume 93.9 fL (83.0-100.0); Platelet Count 218 K/mcL (140-400); Red Blood Count 4.09 M/mcL (3.82-4.97); Red Cell Distribution Width 14.1 % (11.5-14.5); White Blood Count 6.1 K/mcL (4.3-11.1)
[2019-04-12] MEDS: Sucralfate 1 GM TABLET PO SCH ×4 (08:39→22:57)
[2019-04-12] MEDS: levoFLOXacin 750 MG TABLET PO SCH (08:39)
[2019-04-12] MEDS: Gabapentin 300 MG CAPSULE PO SCH ×3 (08:39→20:17)
[2019-04-12] MEDS: BuPROPion SR (12 HR) 150 MG TABLET PO SCH ×2 (08:39→20:17)
[2019-04-12] MEDS: Famotidine 20 MG TABLET PO SCH (08:39)
[2019-04-12] MEDS: Loratadine 10 MG TABLET PO SCH (08:39)
[2019-04-12] MEDS: Furosemide 40 MG/4 ML VIAL IVP SCH ×2 (08:40→16:26)
[2019-04-12] MEDS: clonazePAM 1 MG TABLET PO PRN ×2 (08:51→23:09)
[2019-04-12] MEDS: risperiDONE 1 MG TABLET PO SCH (20:17)
[2019-04-12] MEDS: traZODone 50 MG TABLET PO SCH (20:17)
[2019-04-13] MEDS: *HR* HYDROcodone/Acet 5/325 mg TABLET PO PRN ×2 (04:26→10:52)
[2019-04-13] MEDS: *HR* Heparin 5,000 UNIT/ML VIAL SQ SCH (05:15)
[2019-04-13 07:57] VITALS: BP 111/79
[2019-04-13] MEDS: Furosemide 40 MG/4 ML VIAL IVP SCH (08:21)
[2019-04-13] MEDS: levoFLOXacin 750 MG TABLET PO SCH (08:22)
[2019-04-13] MEDS: Sucralfate 1 GM TABLET PO SCH (08:22)
[2019-04-13] MEDS: Loratadine 10 MG TABLET PO SCH (08:22)
[2019-04-13] MEDS: BuPROPion SR (12 HR) 150 MG TABLET PO SCH (08:22)
[2019-04-13] MEDS: Gabapentin 300 MG CAPSULE PO SCH (08:22)
[2019-04-13] MEDS: Famotidine 20 MG TABLET PO SCH (08:23)
[2019-04-13 08:28] LABS: BUN/Creatinine Ratio 11 (6-26); Blood Urea Nitrogen 10 mg/dL (6-20); Calcium 9.6 mg/dL (8.6-10.3); Carbon Dioxide 28 mEq/L (23-29); Chloride 94 mEq/L (98-107); Glucose 96 mg/dL (70-105); Osmolality,Calculated 277 (280-300); Potassium 3.8 mEq/L (3.5-5.1); Sodium 134 mEq/L (136-145); eGFR For African Americans > 60 (> 60); eGFR For Non-African Americans > 60 (> 60)
[2019-04-13] MEDS: clonazePAM 1 MG TABLET PO PRN (08:36)
[2019-04-14 09:05] LABS: Ribonucleic Protein IgG-Sm/RNP 1 AU/mL (0-40); Ribosomal P Protein Antibody 0 AU/mL (0-40); SSA 52 (Anti-RO) Antibody 0 AU/mL (0-40); SSA 60 (Anti-RO) Antibody 0 AU/mL (0-40)
[2019-04-15 08:39] LABS: Serine Protease-3 Antibody 1 AU/mL (0-19)
== END 2019-04-13 11:31 | disposition home or self-care (01) | DRG 291 ==
LOC: EMEROOARM 21:45 → 3ANU 21:45 → SUATTDRO 04-09 01:36 → 3ANU 04-09 02:09
PROVIDERS: ADMIT Internal Medicine; ATTEND Internal Medicine